=== PATIENT | female | born 1970 | race Caucasian/White ===

== ENCOUNTER 2016-09-25 01:01 | Observation (INO) ==
[2016-09-25 01:41] LABS: Basophils # 0.1 K/mcL (0.0-0.2); Basophils % 0.7 %; Eosinophils # 0.2 K/mcL (0.0-0.6); Eosinophils % 2.7 %; Hematocrit 46.3 % (35.3-44.9); Immature Granulocytes % 0.2 % (0-4); Immature Platelets 3.3 % (1.1-6.1); Lymphocytes % 34.2 %; Mean Corpuscular HGB Conc 34.6 g/dL (31.6-35.5); Mean Corpuscular Hemoglobin 32.5 pg (28.0-33.3); Mean Corpuscular Volume 94.1 fL (83.0-100.0); Mean Platelet Volume 9.6 fL (9.4-12.4); Monocytes # 0.7 K/mcL (0.0-1.3); Monocytes % 7.3 %; Neutrophils # 4.9 K/mcL (1.6-8.9); Platelet Count 283 K/mcL (140-400); Red Blood Count 4.92 M/mcL (3.82-4.97); Red Cell Distribution Width 12.2 % (11.5-14.5); Segmented Neutrophils % 54.9 %
[2016-09-25] MEDS ORDERED: Aspirin 81 MG TAB.CHEW PO STA (01:46)
[2016-09-25 01:53] LABS: BUN/Creatinine Ratio 17 (6-26); Blood Urea Nitrogen 14 mg/dL (7-20); Calcium 9.5 mg/dL (8.6-10.8); Carbon Dioxide 24 mEq/L (19-29); Chloride 108 mEq/L (98-109); Glucose 119 mg/dL (70-99); Osmolality,Calculated 290 (280-300); Potassium 3.6 mEq/L (3.5-4.5); Sodium 139 mEq/L (136-145); eGFR For African Americans > 60 (> 60); eGFR For Non-African Americans > 60 (> 60)
[2016-09-25] MEDS ORDERED: *HR* Morphine 2 MG/ML SYRINGE IVP ONE (02:04)
[2016-09-25] MEDS ORDERED: Ondansetron 4 MG/2 ML VIAL IVP ONE (02:04)
[2016-09-25] MEDS ORDERED: 0.9 % Sodium Chloride 1,000 ML IVC ONE (02:04)
[2016-09-25] MEDS ORDERED: Nitroglycerin 0.4 MG TAB.SUBL SL PRN (02:04)
--- NOTE | 2016-09-25 02:27 | Emergency Department Note ---
Disposition Clinical Impression: Chest pain Qualifiers: Chest pain type: precordial pain Qualified Code(s): R07.2 - Precordial pain Disposition: Admitted As Inpatient Condition: Fair Chest Pain HPI - General Chief Complaint: ED Chest Pain Stated Complaint: chest pain Time Seen by Provider: 09/25/16 01:42 Source: patient Mode of arrival: private vehicle Limitations: no limitations Vital Signs Reviewed: Yes Nursing Notes Reviewed: Yes - History of Present Illness Pt complaint: chest pain Onset (ago): day(s) (1 - yesterday evening) Duration: gradually worsening Onset: during exertion Pain Location: substernal Severity: moderate Quality: heaviness, sharp Pain Radiation: back Improves with: rest Worsens with: exertion, other (lying down) Associated symptoms: Reports: nausea, dyspnea ("feel a little short of breath because it hurts so bad"). Denies: vomiting, diaphoresis Treatments prior to arrival chest pain: none - Related Data On Oral Contraceptives: No Previous Rx's Medication Instructions Recorded Acetaminophen [Tylenol] 500 mg PO Q6HR PRN #20 tablet 11/17/14 Meclizine [Antivert] 25 mg PO TID #20 tablet 01/21/15 Ondansetron HCl [Zofran] 4 mg PO 2-3XD PRN #14 tablet 01/21/15 Allergies Allergy/AdvReac Type Severity Reaction Status Date / Time codeine Allergy Rash Verified 11/17/14 17:27 Amoxicillin AdvReac Rash Verified 01/21/15 10:07 All systems ED: reviewed and negative except as stated. Constitutional: Denies: fever, chills, weakness Cardiovascular: Reports: chest pain. Denies: palpitations, dyspnea on exertion , orthopnea, edema, syncope Respiratory: Reports: dyspnea. Denies: cough, wheezes Gastrointestinal: Reports: nausea. 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 Absent: scleral icterus, conjunctival injection, periorbital swelling - ENT ENT exam: mucous membranes moist - Neck Neck exam: Present: normal inspection, full ROM, trachea midline. Absent: tenderness, meningismus - Chest Chest inspection: Present: normal inspection, symmetric chest wall rise - Respiratory Respiratory exam: Present: normal lung sounds bilaterally. Absent: respiratory distress, wheezes, stridor - Cardiovascular Cardiovascular exam: Present: regular rate, normal rhythm, normal heart sounds - Abdominal Exam Abdominal exam: Present: soft, Non-Tender. Absent: distention, guarding, rebound, rigidity, organomegaly, mass - Extremities Exam Extremities exam: Present: normal inspection, normal capillary refill. Absent: pedal edema - Back Exam Back exam: Present: normal inspection, full ROM. Absent: tenderness - Neurological Exam Neurological exam: Present: alert, oriented X3, CN II-XII intact, normal gait - Psychiatric Psychiatric exam: Present: normal affect, normal mood - Skin Skin exam: Present: warm, dry, intact, normal color Course Course Narrative: 46-year-old obese female smoker presents with exertional chest pain of 24 hours duration. It has increased in intensity throughout the night. She was unable to sleep. The pain is worse with any exertion and with lying supine. It radiates through to the back. She had a stress test a year ago and has never had a heart catheterization. She denies recent illness, recent calf pain, surgery, or prolonged sedentary periods. She is not on estrogen and has no history of DVT or PE. She has had nausea but no vomiting and has no abdominal tenderness to palpation. Her initial oxygen saturation was 92% on room air. She does have a history of asthma/COPD. She has no wheezing and is not tachypneic or tachycardic. Her oxygen saturation improves when she sits up straight. She has had no cough and her chest x-ray does not show pneumonia. Her EKG shows Q waves in lead three which is new compared to 2015. Initial troponin is normal. She will require admission for rule out. Case has been discussed with attending physician, Dr. Tonie Bruce. She has seen the patient and agrees with the assessment, plan. - Reevaluation(s) Reevaluation #1: Pain better after NTG and Morphine. O2sat improved with posture correction Time: 03:37 Vital Signs Temperature 98.2 F 09/25/16 01:13 Pulse Rate 83 09/25/16 01:13 Respiratory Rate 18 09/25/16 01:13 Blood Pressure 112/75 09/25/16 01:13 O2 Sat by Pulse Oximetry 92 09/25/16 01:13 Temperature 98.2 F 09/25/16 01:13 Pulse Rate 75 09/25/16 03:50 Respiratory Rate 18 09/25/16 03:50 Blood Pressure 112/75 09/25/16 01:13 O2 Sat by Pulse Oximetry 95 09/25/16 03:50 Oxygen Delivery Oxygen Delivery Room Air Chest Pain - Medical Records Medical records reviewed: Yes I reviewed the patient's medical records. - Lab Data Lab results reviewed: Yes I reviewed the patient's lab results. Lab results narrative: Laboratory Last Values WBC 8.9 K/mcL (4.3-11.1) 09/25/16 01:33 RBC 4.92 M/mcL (3.82-4.97) 09/25/16 01:33 Hgb 16.0 g/dL (11.5-15.4) H 09/25/16 01:33 Hct 46.3 % (35.3-44.9) H 09/25/16 01:33 MCV 94.1 fL (83.0-100.0) 09/25/16 01:33 MCH 32.5 pg (28.0-33.3) 09/25/16 01:33 MCHC 34.6 g/dL (31.6-35.5) 09/25/16 01:33 RDW 12.2 % (11.5-14.5) 09/25/16 01:33 Plt Count 283 K/mcL (140-400) 09/25/16 01:33 MPV 9.6 fL (9.4-12.4) 09/25/16 01:33 Immature Gran % 0.2 % (0-4) 09/25/16 01:33 Seg Neutrophils % 54.9 % 09/25/16 01:33 Lymphocytes % 34.2 % 09/25/16 01:33 Monocytes % 7.3 % 09/25/16 01:33 Eosinophils % 2.7 % 09/25/16 01:33 Basophils % 0.7 % 09/25/16 01:33 Neutrophils # 4.9 K/mcL (1.6-8.9) 09/25/16 01:33 Lymphocytes # 3.0 K/mcL (0.6-4.6) 09/25/16 01:33 Monocytes # 0.7 K/mcL (0.0-1.3) 09/25/16 01:33 Eosinophils # 0.2 K/mcL (0.0-0.6) 09/25/16 01:33 Basophils # 0.1 K/mcL (0.0-0.2) 09/25/16 01:33 Immature Plt Fraction 3.3 % (1.1-6.1) 09/25/16 01:33 D-Dimer 412 ng/mLFEU (0-500) 09/25/16 02:53 Sodium 139 mEq/L (136-145) 09/25/16 01:33 Potassium 3.6 mEq/L (3.5-4.5) 09/25/16 01:33 Chloride 108 mEq/L (98-109) 09/25/16 01:33 Carbon Dioxide 24 mEq/L (19-29) 09/25/16 01:33 BUN 14 mg/dL (7-20) 09/25/16 01:33 Creatinine 0.83 mg/dL (0.57-1.11) 09/25/16 01:33 Est GFR ( Amer) > 60 (> 60) 09/25/16 01:33 Est GFR (Non-Af Amer) > 60 (> 60) 09/25/16 01:33 BUN/Creatinine Ratio 17 (6-26) 09/25/16 01:33 Glucose 119 mg/dL (70-99) H 09/25/16 01:33 Calculated Osmolality 290 (280-300) 09/25/16 01:33 Calcium 9.5 mg/dL (8.6-10.8) 09/25/16 01:33 Troponin I 0.01 ng/mL (0-0.03) 09/25/16 01:33 Lipase 31 Units/L (8-78) 09/25/16 02:53 Result diagrams: 09/25/16 01:33 07/11/17 01:33 Lab Results 09/25/16 09/25/16 09/25/16 Range/Units 01:33 01:33 01:33 WBC 8.9 (4.3-11.1) K/mcL RBC 4.92 (3.82-4.97) M/mcL Hgb 16.0 H (11.5-15.4) g/dL Hct 46.3 H (35.3-44.9) % MCV 94.1 (83.0-100.0) fL MCH 32.5 (28.0-33.3) pg MCHC 34.6 (31.6-35.5) g/dL RDW 12.2 (11.5-14.5) % Plt Count 283 (140-400) K/mcL MPV 9.6 (9.4-12.4) fL Immature Gran % 0.2 (0-4) % Seg Neutrophils % 54.9 % Lymphocytes % 34.2 % Monocytes % 7.3 % Eosinophils % 2.7 % Basophils % 0.7 % Neutrophils # 4.9 (1.6-8.9) K/mcL Lymphocytes # 3.0 (0.6-4.6) K/mcL Monocytes # 0.7 (0.0-1.3) K/mcL Eosinophils # 0.2 (0.0-0.6) K/mcL Basophils # 0.1 (0.0-0.2) K/mcL Immature Plt Fraction 3.3 (1.1-6.1) % D-Dimer (0-500) ng/mLFEU Sodium 139 (136-145) mEq/L Potassium 3.6 (3.5-4.5) mEq/L Chloride 108 (98-109) mEq/L Carbon Dioxide 24 (19-29) mEq/L BUN 14 (7-20) mg/dL Creatinine 0.83 (0.57-1.11) mg/dL Est GFR ( Amer) > 60 (> 60) Est GFR (Non-Af Amer) > 60 (> 60) BUN/Creatinine Ratio 17 (6-26) Glucose 119 H (70-99) mg/dL Calculated Osmolality 290 (280-300) Calcium 9.5 (8.6-10.8) mg/dL Troponin I 0.01 (0-0.03) ng/mL Lipase (8-78) Units/L 09/25/16 09/25/16 Range/Units 02:53 02:53 WBC (4.3-11.1) K/mcL RBC (3.82-4.97) M/mcL Hgb (11.5-15.4) g/dL Hct (35.3-44.9) % MCV (83.0-100.0) fL MCH (28.0-33.3) pg MCHC (31.6-35.5) g/dL RDW (11.5-14.5) % Plt Count (140-400) K/mcL MPV (9.4-12.4) fL Immature Gran % (0-4) % Seg Neutrophils % % Lymphocytes % % Monocytes % % Eosinophils % % Basophils % % Neutrophils # (1.6-8.9) K/mcL Lymphocytes # (0.6-4.6) K/mcL Monocytes # (0.0-1.3) K/mcL Eosinophils # (0.0-0.6) K/mcL Basophils # (0.0-0.2) K/mcL Immature Plt Fraction (1.1-6.1) % D-Dimer 412 (0-500) ng/mLFEU Sodium (136-145) mEq/L Potassium (3.5-4.5) mEq/L Chloride (98-109) mEq/L Carbon Dioxide (19-29) mEq/L BUN (7-20) mg/dL Creatinine (0.57-1.11) mg/dL Est GFR ( Amer) (> 60) Est GFR (Non-Af Amer) (> 60) BUN/Creatinine Ratio (6-26) Glucose (70-99) mg/dL Calculated Osmolality (280-300) Calcium (8.6-10.8) mg/dL Troponin I (0-0.03) ng/mL Lipase 31 (8-78) Units/L - Radiology Data Radiology results reviewed: Yes I reviewed the patient's radiology results. Chest X-Ray 09/25/16 01:22 IMPRESSION: COPD with increasing left lung base atelectasis versus scarring. D/ / Fabián Gloria MD / Fabián Gloria MD Interpreting Provider: Fabián Gloria MD - EKG Data EKG attestation: Yes I reviewed and interpreted this EKG. EKG shows normal: sinus rhythm Rate: normal Rhythm: NSR [place]/QRS: normal Q waves: III When compared to previous EKG there are: changes noted Interpretation: nonspecific ST-T wave changes - Core Measures AMI Core Measures Followed: Yes Heart Score - Score History: Slightly Suspicious EKG: Non Specific repolarisation Disturbance Age: 45-65 Risk Factors: 1-2 risk factors Troponin: Less than normal limit HEART Score Total: 3 Attestation Statement - Attestation Attestation: I personally interviewed and examined this patient and my medical decision- making was reviewed with the MANDEEP, Kym Stern I agree with the documented findings , disposition and treatment plan as described except to the extent set forth below. This 46-year-old white female history of smoking who presents to the emergency department with substernal chest discomfort and shortness of breath. Patient with cardiac risk factors and prior remote stress testing which was normal. Patient does not feel the pain is related to exertion. No aggravating or relieving factors. Agree with patient's physical exam findings as documented. EKG showed no acute ST or T-wave changes. Patient's chest x-ray was within normal limits. Labs including initial troponin and d-dimer were within normal limits. Symptoms were resolved following aspirin and nitroglycerin administration. We will admit the patient for further evaluation of chest pain rule out ACS. Patient's remained hemodynamically stable while in the emergency department.
[2016-09-25] MEDS ORDERED: Naloxone 0.4 MG/ML INJ IVP PRN (10:05)
[2016-09-25] MEDS ORDERED: Ibuprofen 400 MG TABLET PO PRN (10:05)
[2016-09-25 11:26] VITALS: BP 104/63
--- NOTE | 2016-09-25 11:51 | Internal Med History&Physical ---
Date of Encounter: 09/25/16 Time of Encounter: 10:00 Assessment and Plan (1) Chest pain Current visit: Yes Status: Acute Atypical chest pain, could be noncardiac/musculoskeletal or pericarditis. EKG shows no acute ischemic changes. Telemetry monitoring has been uneventful. Serial troponins remain negative. Patient is currently asymptomatic, tolerates oral diet. When necessary NSAIDs and aspirin. Nuclear stress test done during spring 2015 was negative for ischemia/infarct. She follows with cardiology for PVCs and has been started on beta radha and doing well. She does have cardiology follow-up tomorrow, recommend to keep this appointment. Patient is otherwise medically stable, and will be discharged later today. Qualifiers: Chest pain type: precordial pain Qualified Code(s): R07.2 - Precordial pain (2) Tobacco abuse Current visit: Yes Status: Chronic smoking cessation counseling provided. Patient is currently on cessation program and cut down to half pack per day. (3) Asthma Current visit: Yes Status: Chronic Qualifiers: Asthma severity: mild intermittent Asthma complication type: uncomplicated Qualified Code(s): J45.20 - Mild intermittent asthma, uncomplicated Internal Medicine - H&P: HPI Chief complaint: Chest pain Admitted From: Emergency Dept Plans for Post Hospital Care: Home History of present illness: Ms. Vaughan is a 46 year old female with history of tobacco abuse, PVCs, presents with complaints of retrosternal chest pain for the past day. Patient reports sudden onset of retrosternal stabbing chest pain that began more than 24 hours ago in the early hours of September 24. Pain was constant, aggravated in supine position, improved on sitting up, not associated with upper respiratory symptoms/fever/chills/diaphoresis or shortness of breath. She associated the pain to indigestion/GERD and took Zantac and PPI throughout the day, which failed to relieve her pain. She continued to have similar pain on lying down last night, could not sleep for the last 2 nights, and presented to the emergency room for further evaluation. She was seen by cardiology for preop clearance for hysterectomy due to PVCs and has been started on low-dose aspirin and beta radha, she does have a routine follow-up with cardiology tomorrow. Past Med Surg Social Fam HX - Past Medical History Medical history: asthma Psychiatric history: anxiety - Past Surgical History Surgical History: breast surgery (Left breast biopsy), cholecystectomy, herniorrhaphy, hysterectomy, orthopedic, other - Social History Smoking Status: Current every day smoker Packs per day: 1 Smokeless Tobacco Status: No Alcohol use: occasionally Drug use: none Occupational status: employed Current living situation: Home, With Family Activity Level: Independent ambulation Recent Out of Country Travel Within the Last 8 Weeks: No - Family History Mother Hx Family Endocrine Disorder: Yes (DM) Internal Medicine - H&P: Meds Acetaminophen [Tylenol] 500 mg PO Q6HR PRN #20 tablet 11/17/14 [Rx] Albuterol Sulfate [Albuterol Inhaler] 2 puff IH Q4HR PRN 09/25/16 [History] Flunisolide [Aerospan] 1 puff IH BID 09/25/16 [History] Metoprolol XL (24 HR) Succ [Toprol XL] 12.5 mg PO DAILY 09/25/16 [History] Montelukast [Singulair] 10 mg PO QPM 09/25/16 [History] Allergies codeine Allergy (Verified 11/17/14 17:27) Rash Amoxicillin Adverse Reaction (Verified 01/21/15 10:07) Rash All Systems PM: A 10-system review of systems was performed and is negative for pertinent findings except as documented above in the HPI. - Constitutional Constitutional: no chills, no fever(s), no night sweats - EENT Eyes: no change in vision, no discharge, no pain, no photophobia Ears: no ear discharge, no ear pain, no tinnitus Nose, mouth and throat: no dysphagia, no nasal discharge, no neck pain, no sore throat - Cardiovascular Cardiovascular ROS IM: chest pain - Respiratory Respiratory: dyspnea, no cough, no wheezing, no excessive phlegm production - Gastrointestinal Gastrointestinal: no abdominal pain, no diarrhea, no hematemesis, no hematochezia, no melena, no nausea, no vomiting - Genitourinary Genitourinary: no change in urinary stream, no dysuria, no flank pain, no hematuria - Musculoskeletal Musculoskeletal ROS IM: no numbness, no tingling - Integumentary Integumentary IM: no rash, no unusual bruising - Neurological Neurological ROS: no confusion, no convulsions, no focal weakness, no numbness, no tingling, no tremor(s) - Hematologic/Lymphatic Hematologic/Lymphatic: no easy bruising - Constitutional Vitals: Temp Pulse Resp BP Pulse Ox 98.0 F 82 16 104/63 92 09/25/16 11:23 09/25/16 11:23 09/25/16 11:23 09/25/16 11:23 09/25/16 11:23 General appearance: Present: A&O X 3, answers questions appropriately - Respiratory Respiratory exam: Present: CTAB. Absent: accessory muscle use, rales, rhonchi, wheezes - Cardiovascular Cardiovascular exam: Present: RRR, +S1, +S2. Absent: diastolic murmur, gallop, rubs, systolic murmur - GI/Abdominal GI/Abdominal exam: Present: normal bowel sounds, soft, no peritoneal signs. Absent: distended, tenderness - Extremities Exam Extremities exam: Present: full ROM, warm, radial pulses palpable and symetrical. Absent: calf tenderness, cyanotic, pedal edema - Neurological Exam Neurological exam: Present: CN II-XII intact, oriented X3, no focal deficits. Absent: pronater drift, facial droop, speech deficit - Skin Skin exam: Present: dry, intact Internal Med - H&P Results - Labs CBC & Chem 7: 09/25/16 01:33 09/25/16 01:33 Labs: Cardiac Enzymes 09/25/16 Range/Units 09:17 Troponin I 0.01 (0-0.03) ng/mL - EKG Data -: EKG Interpreted by Myself EKG shows normal: sinus rhythm Rate: normal
--- NOTE | 2016-09-25 12:27 | Discharge Summary ---
<Areli Rodríguez - Last Filed: 09/25/16 18:18> Date of Encounter: 09/25/16 - Discharge Medications Home Medications: Acetaminophen [Tylenol] 500 mg PO Q6HR PRN #20 tablet 11/17/14 [Rx] Albuterol Sulfate [Albuterol Inhaler] 2 puff IH Q4HR PRN 09/25/16 [History] Flunisolide [Aerospan] 1 puff IH BID 09/25/16 [History] Ibuprofen [Motrin] 400 mg PO Q6HR PRN #0 tablet 09/25/16 [Rx] Metoprolol XL (24 HR) Succ [Toprol Xl] 12.5 mg PO DAILY 09/25/16 [History] Montelukast [Singulair] 10 mg PO QPM 09/25/16 [History] Allergies/Adverse Reactions: Allergies codeine Allergy (Verified 11/17/14 17:27) Rash Amoxicillin Adverse Reaction (Verified 01/21/15 10:07) Rash Date of admission: 09/25/16 04:03 Primary care physician: Solomon Badillo MD - Patient Status Disposition: Home, Self-Care Condition: Good - Discharge Instructions Instructions: Chest Pain (DC), Asthma (DC), How to Stop Smoking (DC) Follow Up With: Solomon Badillo MD [Primary Care Provider] - 10/02/16 10:45 am Goyo Womack MD [Partnered Physician] - 09/26/16 8:50 am Additional Instructions: F/up with [facility] as scheduled on 09/26/16 Hospital course: Ms. Vaughan is a 46 year old female - Time Spent with Patient Total time spent providing and/or coordinating discharge services: - Constitutional Vitals: Temp Pulse Resp BP Pulse Ox 98.0 F 82 16 104/63 92 09/25/16 11:23 09/25/16 11:23 09/25/16 11:23 09/25/16 11:23 09/25/16 11:23 <Mouna Morales - Last Filed: 09/26/16 09:35> Date of Encounter: 09/26/16 Time of Encounter: 10:00 - Discharge Diagnosis (1) Chest pain Priority: Primary Status: Acute Qualifiers: Chest pain type: precordial pain Qualified Code(s): R07.2 - Precordial pain (2) Tobacco abuse Priority: Secondary Status: Chronic (3) Asthma Priority: Secondary Status: Chronic Qualifiers: Asthma severity: mild intermittent Asthma complication type: uncomplicated Qualified Code(s): J45.20 - Mild intermittent asthma, uncomplicated Date of admission: 09/25/16 04:03 Primary care physician: Solomon Badillo MD Discharging clinician: Mouna Morales Anticipated date of discharge: 09/25/16 - Patient Status Functional capacity at discharge: independent ambulation Overall status at discharge: patient is back to baseline - Diet and Activity Activity: resume usual activities as tolerated Diet: advance to your usual diet Hospital course: Ms. Vaughan is a 46 year old female with the above medical problems, who was admitted with left-sided chest pain, to r/o ACS. Patient had atypical pain, that was worse on lying down, could be musculoskeletal/GERD/mild pericarditis. She was much improved upon my evaluation this morning and tolerates diet and doing well. Labs were normal, remained hemodynamically stable. Telemetry was uneventful and serial Troponins were negative. She has Cardiology f/up for PVCs monitoring tomorrow, and is medically stable for discharge, and encouraged to keep tomorrow's appointment. - Time Spent with Patient Total time spent providing and/or coordinating discharge services: Greater than 30 minutes (30 min) - Constitutional Vitals: Temp Pulse Resp BP Pulse Ox 98.0 F 82 16 104/63 92 09/25/16 11:23 09/25/16 11:23 09/25/16 11:23 09/25/16 11:23 09/25/16 11:23 General appearance: Present: A&O X 3, answers questions appropriately - Respiratory Respiratory exam: Present: CTAB. Absent: accessory muscle use, rales, rhonchi, wheezes
--- NOTE | 2016-09-25 16:37 | Electrocardiograph Report ---
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
== END 2016-09-25 15:13 | disposition home or self-care (01) ==
LOC: EMEROO 01:01 → 3BNU 01:01
PROVIDERS: ADMIT Internal Medicine; ATTEND Registered Nurse

== ENCOUNTER 2018-04-03 02:49 | Observation (INO) ==
[2018-04-03] MEDS ORDERED: Ipratropium/Albuterol Neb 3 ML IH ONE (03:01)
[2018-04-03] MEDS ORDERED: methylPREDNISolone 125 MG/2 ML VIAL IVP ONE (03:01)
[2018-04-03 03:13] LABS: Basophils % 0.2 %; Hematocrit 48.5 % (35.3-44.9); Hemoglobin 16.7 g/dL (11.5-15.4); Immature Granulocytes % 0.4 % (0-4); Lymphocytes # 1.1 K/mcL (0.6-4.6); Lymphocytes % 7.4 %; Mean Corpuscular HGB Conc 34.4 g/dL (31.6-35.5); Mean Corpuscular Hemoglobin 32.6 pg (28.0-33.3); Mean Corpuscular Volume 94.7 fL (83.0-100.0); Mean Platelet Volume 9.7 fL (9.4-12.4); Monocytes # 0.2 K/mcL (0.0-1.3); Monocytes % 1.5 %; Neutrophils # 13.1 K/mcL (1.6-8.9); Platelet Count 299 K/mcL (140-400); Red Blood Count 5.12 M/mcL (3.82-4.97); Red Cell Distribution Width 12.2 % (11.5-14.5); Segmented Neutrophils % 90.5 %
--- NOTE | 2018-04-03 03:29 | Emergency Department Note ---
Disposition Clinical Impression: Hypoxia, Pneumonitis, Lung nodule Disposition: Admitted As Inpatient Condition: Good Time of Disposition: 05:11 SOB HPI - General Chief Complaint: ED Shortness of Breath/Dyspnea Stated Complaint: Naida Time Seen by Provider: 04/03/18 02:52 Source: patient Limitations: no limitations Nursing Notes Reviewed: Yes Vital Signs Reviewed: Yes - History of Present Illness 47-year-old female history of asthma and tobacco smoker presents to the emergency department for difficulty in breathing. States over the past 2 weeks or so she sat productive cough with difficulty in breathing with chest tightness today. She has not been evaluated for this in thought she may have had pneumonia. She was seen at outside facility where they diagnosed her with bronchitis sent home on Zpak with breathing treatments. She returned home and continue to have difficulty in breathing and presents here. Never diagnosed with COPD. She states early into her illness she did have fevers for 3 days but has been afebrile. She denies any leg swelling. She denies any recent long- distance travel, hospitalization or surgeries. No history of active cancer or hormone replacement. No history of cardiac ischemic disease. Pt Subjective Complaint: shortness of breath, cough - Related Data Home Medications Medication Instructions Recorded Confirmed Albuterol Sulfate [Albuterol 2 puff IH Q4HR PRN 09/25/16 09/25/16 Inhaler] Flunisolide [Aerospan] 1 puff IH BID 09/25/16 09/25/16 Metoprolol XL (24 HR) Succ [Toprol 12.5 mg PO DAILY 09/25/16 09/25/16 Xl] Montelukast [Singulair] 10 mg PO QPM 09/25/16 09/25/16 Previous Rx's Medication Instructions Recorded Acetaminophen [Tylenol] 500 mg PO Q6HR PRN #20 tablet 11/17/14 Ibuprofen [Motrin] 400 mg PO Q6HR PRN #0 tablet 09/25/16 Doxycycline 100 mg PO BID #14 capsule 10/13/16 predniSONE [Prednisone] 50 mg PO DAILY #5 tablet 10/13/16 Albuterol Sulfate [Albuterol 1 puff IH Q4HR PRN #1 hfa.aer.ad 12/25/16 Inhaler] Flunisolide [Aerospan] 1 puff IH BID #1 hfa.aer.ad 12/25/16 Montelukast [Singulair] 10 mg PO DAILY #30 tablet 12/25/16 Albuterol Sulfate [Albuterol 2 puff IH QID #1 inhaler 05/13/17 Inhaler] Azithromycin [Azithromycin 6-Tab 250 mg PO PER PKG DI #6 tab 05/13/17 Pack] Benzonatate [Tessalon] 200 mg PO TID PRN #20 capsule 05/13/17 predniSONE [PredniSONE] 20 mg PO BID #10 tablet 05/13/17 GuaiFENesin ER [Mucinex] 600 mg PO BID #30 tbbp.12hr 06/04/17 Levofloxacin [Levaquin] 750 mg PO DAILY #9 tablet 06/04/17 predniSONE [Prednisone] 50 mg PO DAILY #4 tablet 06/04/17 Allergies Allergy/AdvReac Type Severity Reaction Status Date / Time codeine Allergy Rash Verified 06/04/17 16:53 Penicillins Allergy Rash Verified 06/04/17 16:53 sulfamethoxazole Allergy Hives Verified 04/03/18 02:54 [From Bactrim] trimethoprim [From Bactrim] Allergy Hives Verified 04/03/18 02:54 Amoxicillin AdvReac Rash Verified 06/04/17 16:53 All systems ED: reviewed and negative except as stated. Review of Systems: As Per HPI Constitutional: Denies: fever, chills ENT ED: Reports: congestion Cardiovascular: Reports: chest pain Respiratory: Reports: cough, dyspnea. Denies: hemoptysis Gastrointestinal: Denies: abdominal pain, nausea, vomiting Genitourinary: Denies: urgency, dysuria Musculoskeletal: Denies: back pain Integumentary: Denies: rash, abrasion Neurological: Denies: headache Past Medical History - Past Medical History Attestation: Yes The following information was validated with the patient. 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 - Social History Smoking Status: Current every day smoker Smokeless Tobacco Status: No Alcohol use: Reports: occasionally Drug use: Reports: none Physical Exam - General Limitations: no limitations General appearance: alert - Head Head exam: atraumatic, normocephalic, normal inspection - Eye Eye exam: Present: normal appearance, PERRL, EOMI - ENT ENT exam: normal exam, normal oropharynx, mucous membranes moist - Neck Neck exam: Present: normal inspection, full ROM, trachea midline - Chest Chest inspection: Present: normal inspection, symmetric chest wall rise - Respiratory Respiratory exam: Present: normal lung sounds bilaterally, prolonged expiratory phase, other (Tight aeration). Absent: respiratory distress, wheezes - Cardiovascular Cardiovascular exam: Present: regular rate, normal rhythm, normal heart sounds - Abdominal Exam Abdominal exam: Present: soft, Non-Tender, normal bowel sounds. Absent: tenderness, distention, guarding, rebound, rigidity - Extremities Exam Extremities exam: Present: normal inspection, full ROM, normal capillary refill. Absent: tenderness, pedal edema, calf tenderness - Neurological Exam Neurological exam: Present: alert, oriented X3 - Psychiatric Psychiatric exam: Present: normal affect, normal mood - Skin Skin exam: Present: warm, dry, intact, normal color. Absent: rash, cyanosis, diaphoresis Course Course Narrative: Patient presents with complaints of difficulty breathing ongoing for the past 2 weeks worse today. She presents hypoxic requiring oxygen. She does not were oxygen at home. She has tight aeration but no audible wheezing. She is complaining of some chest tightness as well. No pleuritic chest pain. No leg swelling noted. Suspect likely reactive airway disease. Given the tachycardia and hypoxia will also order D dimer. Reading treatment ordered. - Reevaluation(s) Reevaluation #1: She has a leukocytosis of 14. Her D dimer is 300. Low suspicion for pulmonary embolism. Troponin less than 0.03. BNP is minimal. Improvement with breathing treatment. Chest x-ray is pending at this time. She reports a intramuscular steroid injection at urgent care and refused Solu-Medrol here. Time: 03:40 Reevaluation #2: Patient remains 91% on 1L, she is not on any home oxygen supplementation. Ambulated off oxygen and was 86%. Will admit for pneumonitis and hypoxia with Levaquin. She was made aware of an old right lung nodule Time: 05:11 - Consultations Consultation #1: Spoke with on-call hospitalist sophy Paredes to admit for hypoxia, pneumonitis. No further orders at this time Time: 06:23 Vital Signs Temperature 99.2 F 04/03/18 02:56 Pulse Rate 99 04/03/18 02:56 Respiratory Rate 20 04/03/18 02:56 Blood Pressure 145/78 04/03/18 02:56 O2 Sat by Pulse Oximetry 91 04/03/18 02:56 Temperature 99.2 F 04/03/18 02:56 Pulse Rate 123 04/03/18 06:37 Respiratory Rate 22 04/03/18 06:37 Blood Pressure 145/77 04/03/18 06:37 O2 Sat by Pulse Oximetry 96 04/03/18 06:37 Oxygen Delivery Oxygen Delivery Nasal Cannula Shortness of Breath/Dyspnea - MDM Narrative Medical decision making narrative: Patient was discussed with my attending physician who agrees with ED management and final disposition. They independently evaluated the patient. Please refer to their attestation to this encounter for additional information. This note was generated by [employer] voice recognition software and as a result grammatical or spelling errors may occur using this program. - Medical Records Medical records reviewed: Yes I reviewed the patient's medical records. - Lab Data Lab results reviewed: Yes I reviewed the patient's lab results. Result diagrams: 04/03/18 02:53 04/03/18 02:53 Lab Results 04/03/18 04/03/18 04/03/18 Range/Units 02:53 02:53 02:53 WBC 14.5 H (4.3-11.1) K/mcL RBC 5.12 H (3.82-4.97) M/mcL Hgb 16.7 H (11.5-15.4) g/dL Hct 48.5 H (35.3-44.9) % MCV 94.7 (83.0-100.0) fL MCH 32.6 (28.0-33.3) pg MCHC 34.4 (31.6-35.5) g/dL RDW 12.2 (11.5-14.5) % Plt Count 299 (140-400) K/mcL MPV 9.7 (9.4-12.4) fL Immature Gran % 0.4 (0-4) % Seg Neutrophils % 90.5 % Lymphocytes % 7.4 % Monocytes % 1.5 % Eosinophils % 0.0 % Basophils % 0.2 % Neutrophils # 13.1 H (1.6-8.9) K/mcL Lymphocytes # 1.1 (0.6-4.6) K/mcL Monocytes # 0.2 (0.0-1.3) K/mcL Eosinophils # 0.0 (0.0-0.6) K/mcL Basophils # 0.0 (0.0-0.2) K/mcL D-Dimer 382 (0-500) ng/mLFEU Sodium 137 (136-145) mEq/L Potassium 4.1 (3.5-5.1) mEq/L Chloride 107 (98-107) mEq/L Carbon Dioxide 19 L (23-29) mEq/L BUN 17 (6-20) mg/dL Creatinine 0.83 (0.60-1.20) mg/dL Est GFR ( Amer) > 60 (> 60) Est GFR (Non-Af Amer) > 60 (> 60) BUN/Creatinine Ratio 20 (6-26) Glucose 254 H (70-105) mg/dL Calculated Osmolality 294 (280-300) Calcium 9.4 (8.6-10.3) mg/dL Troponin I < 0.03 (< 0.04) ng/mL B-Natriuretic Peptide (Less than 100) pg/mL 04/03/18 Range/Units 02:53 WBC (4.3-11.1) K/mcL RBC (3.82-4.97) M/mcL Hgb (11.5-15.4) g/dL Hct (35.3-44.9) % MCV (83.0-100.0) fL MCH (28.0-33.3) pg MCHC (31.6-35.5) g/dL RDW (11.5-14.5) % Plt Count (140-400) K/mcL MPV (9.4-12.4) fL Immature Gran % (0-4) % Seg Neutrophils % % Lymphocytes % % Monocytes % % Eosinophils % % Basophils % % Neutrophils # (1.6-8.9) K/mcL Lymphocytes # (0.6-4.6) K/mcL Monocytes # (0.0-1.3) K/mcL Eosinophils # (0.0-0.6) K/mcL Basophils # (0.0-0.2) K/mcL D-Dimer (0-500) ng/mLFEU Sodium (136-145) mEq/L Potassium (3.5-5.1) mEq/L Chloride (98-107) mEq/L Carbon Dioxide (23-29) mEq/L BUN (6-20) mg/dL Creatinine (0.60-1.20) mg/dL Est GFR ( Amer) (> 60) Est GFR (Non-Af Amer) (> 60) BUN/Creatinine Ratio (6-26) Glucose (70-105) mg/dL Calculated Osmolality (280-300) Calcium (8.6-10.3) mg/dL Troponin I (< 0.04) ng/mL B-Natriuretic Peptide 26 (Less than 100) pg/mL - Radiology Data Radiology results reviewed: Yes I reviewed the patient's radiology results. Chest X-Ray 04/03/18 03:01 IMPRESSION: Extensive ground-glass opacification in the lower lung zones bilaterally. Pattern may represent pulmonary edema or developing pneumonitis. D/ / Quoc Morris MD / Quoc Morris MD Interpreting Provider: Quoc Morris MD - EKG Data EKG attestation: Yes I reviewed and interpreted this EKG. EKG results narrative: EKG performed 0257 sinus tachycardia 104 beats per minute, normal axis, good R wave progression, no ST elevation or depression, intervals appear within normal limits. Compared to prior EKG performed 06/04/2017 shows similar consistent findings. No acute ischemic changes. Attestation Statement - Attestation Attestation: I, Zi Azar DO, examined this patient [id number] and my medical decision-making was reviewed with Koko Adorno DO , Resident Physician. I agree with the documented findings, disposition and treatment plan as described except to the extent set forth below. Please see my progress notes for details.
[2018-04-03 03:32] LABS: BUN/Creatinine Ratio 20 (6-26); Blood Urea Nitrogen 17 mg/dL (6-20); Calcium 9.4 mg/dL (8.6-10.3); Carbon Dioxide 19 mEq/L (23-29); Chloride 107 mEq/L (98-107); Glucose 254 mg/dL (70-105); Osmolality,Calculated 294 (280-300); Potassium 4.1 mEq/L (3.5-5.1); Sodium 137 mEq/L (136-145); eGFR For Non-African Americans > 60 (> 60)
[2018-04-03 03:33] LABS: Troponin I < 0.03 ng/mL (< 0.04)
[2018-04-03] MEDS ORDERED: levoFLOXacin 750 MG TABLET PO ONE (05:05)
[2018-04-03] MEDS ORDERED: Albuterol 2.5 MG/3 ML NEBULIZER IH ONE (05:13)
--- NOTE | 2018-04-03 05:18 | Emergency Department Note ---
Disposition Clinical Impression: Hypoxia, Pneumonitis, Lung nodule Disposition: Admitted As Inpatient Condition: Good Referrals: Bartolo Miller DO [Primary Care Provider] - Time of Disposition: 06:41 General Adult HPI - General Chief complaint: ED Shortness of Breath/Dyspnea Stated complaint: Naida Time Seen by Provider: 04/03/18 02:52 Source: patient Limitations: no limitations - History of Present Illness Pain Scale: 0 - Related Data Allergies Allergy/AdvReac Type Severity Reaction Status Date / Time codeine Allergy Rash Verified 06/04/17 16:53 Penicillins Allergy Rash Verified 06/04/17 16:53 sulfamethoxazole Allergy Hives Verified 04/03/18 02:54 [From Bactrim] trimethoprim [From Bactrim] Allergy Hives Verified 04/03/18 02:54 Amoxicillin AdvReac Rash Verified 06/04/17 16:53 Constitutional: Denies: fever, chills ENT ED: Reports: congestion Cardiovascular: Reports: chest pain Respiratory: Reports: cough, dyspnea. 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 - Social History Smoking Status: Current every day smoker Smokeless Tobacco Status: No Alcohol use: Reports: occasionally Drug use: Reports: none Physical Exam - General Limitations: no limitations General appearance: alert Course Vital Signs Temperature 99.2 F 04/03/18 02:56 Pulse Rate 99 04/03/18 02:56 Respiratory Rate 20 04/03/18 02:56 Blood Pressure 145/78 04/03/18 02:56 O2 Sat by Pulse Oximetry 91 04/03/18 02:56 Temperature 99.2 F 04/03/18 02:56 Pulse Rate 123 04/03/18 06:37 Respiratory Rate 22 04/03/18 06:37 Blood Pressure 145/77 04/03/18 06:37 O2 Sat by Pulse Oximetry 96 04/03/18 06:37 Oxygen Delivery Oxygen Delivery Nasal Cannula Medical Decision Making - Lab Data Result diagrams: 04/03/18 02:53 04/03/18 02:53 Lab Results 04/03/18 04/03/18 04/03/18 Range/Units 02:53 02:53 02:53 WBC 14.5 H (4.3-11.1) K/mcL RBC 5.12 H (3.82-4.97) M/mcL Hgb 16.7 H (11.5-15.4) g/dL Hct 48.5 H (35.3-44.9) % MCV 94.7 (83.0-100.0) fL MCH 32.6 (28.0-33.3) pg MCHC 34.4 (31.6-35.5) g/dL RDW 12.2 (11.5-14.5) % Plt Count 299 (140-400) K/mcL MPV 9.7 (9.4-12.4) fL Immature Gran % 0.4 (0-4) % Seg Neutrophils % 90.5 % Lymphocytes % 7.4 % Monocytes % 1.5 % Eosinophils % 0.0 % Basophils % 0.2 % Neutrophils # 13.1 H (1.6-8.9) K/mcL Lymphocytes # 1.1 (0.6-4.6) K/mcL Monocytes # 0.2 (0.0-1.3) K/mcL Eosinophils # 0.0 (0.0-0.6) K/mcL Basophils # 0.0 (0.0-0.2) K/mcL D-Dimer 382 (0-500) ng/mLFEU Sodium 137 (136-145) mEq/L Potassium 4.1 (3.5-5.1) mEq/L Chloride 107 (98-107) mEq/L Carbon Dioxide 19 L (23-29) mEq/L BUN 17 (6-20) mg/dL Creatinine 0.83 (0.60-1.20) mg/dL Est GFR ( Amer) > 60 (> 60) Est GFR (Non-Af Amer) > 60 (> 60) BUN/Creatinine Ratio 20 (6-26) Glucose 254 H (70-105) mg/dL Calculated Osmolality 294 (280-300) Calcium 9.4 (8.6-10.3) mg/dL Troponin I < 0.03 (< 0.04) ng/mL B-Natriuretic Peptide (Less than 100) pg/mL 04/03/18 Range/Units 02:53 WBC (4.3-11.1) K/mcL RBC (3.82-4.97) M/mcL Hgb (11.5-15.4) g/dL Hct (35.3-44.9) % MCV (83.0-100.0) fL MCH (28.0-33.3) pg MCHC (31.6-35.5) g/dL RDW (11.5-14.5) % Plt Count (140-400) K/mcL MPV (9.4-12.4) fL Immature Gran % (0-4) % Seg Neutrophils % % Lymphocytes % % Monocytes % % Eosinophils % % Basophils % % Neutrophils # (1.6-8.9) K/mcL Lymphocytes # (0.6-4.6) K/mcL Monocytes # (0.0-1.3) K/mcL Eosinophils # (0.0-0.6) K/mcL Basophils # (0.0-0.2) K/mcL D-Dimer (0-500) ng/mLFEU Sodium (136-145) mEq/L Potassium (3.5-5.1) mEq/L Chloride (98-107) mEq/L Carbon Dioxide (23-29) mEq/L BUN (6-20) mg/dL Creatinine (0.60-1.20) mg/dL Est GFR ( Amer) (> 60) Est GFR (Non-Af Amer) (> 60) BUN/Creatinine Ratio (6-26) Glucose (70-105) mg/dL Calculated Osmolality (280-300) Calcium (8.6-10.3) mg/dL Troponin I (< 0.04) ng/mL B-Natriuretic Peptide 26 (Less than 100) pg/mL Attestation Statement - Attestation Attestation: I, Zi Azar DO, examined this patient [id number] and my medical decision-making was reviewed with Koko Adorno DO , Resident Physician. I agree with the documented findings, disposition and treatment plan as described except to the extent set forth below. Please see my progress notes for details. 42-year-old female seen and evaluated in conjunction with resident physician. Presents here today with increased work of breathing and shortness of breath. Patient has a history of asthma. She does smoke. She does have hypertension. Denies any falls trauma or injury. Denies any headache or vision change. Currently denying chest pain fevers chills nausea vomiting or diarrhea. Patient's main complaint shortness breath and chest tightness. Patient was seen in outside facility had chest x-ray completed that was negative at that time. She is provided with steroids recommendation to use breathing treatments at home. She thought that she is feeling slightly better but she said several episodes of exertional related lightheadedness dizziness and feeling like she was going to pass out. She does not use oxygen at home and has never used CPAP or BiPAP. On presentation here and on my evaluation the patient's heart rate is elevated in the 110 2015 range. She is still sitting forward working harder to breathe than typical. Her oxygenation is stable but requiring oxygen by nasal cannula. She has diminished breath sounds bilaterally. Heart is regular with no murmurs. Abdomen is soft. No signs of pitting edema or swelling. Patient was ambulated and attempt to get her home after the workup Unremarkable outside of potential pneumonitis versus atelectasis in the bilateral lungs. Patient ambulate around the emergency department had hypoxic events down into the 80s and felt lightheaded again at that time. Because of this the patient will be admitted for symptomatic control and management. Repeat doses of albuterol be given. Antibiotic regimen started for pneumonitis versus pneumonia. Levaquin was given. Blood cultures were drawn. Labs are reviewed and are unremarkable. Patient will be admitted for symptomatic asthma exacerbation versus new-onset COPD. Hospitalist has been paged at this time for admission process. See detailed documentation of the physical exam, medical intervention, medical decision-making and disposition in the resident physician's note. No critical care provider the patient's treatment course at this time. D-dimer was normal clinically ruling out pulmonary emboli at this time. Further evaluation for this etiology may be considered in the hospital stay 0645 Detailed review the presentation symptoms were discussed with the admitting hospitalist Dr. Rosales. No other recommendations or concerns noted this time. Patient is otherwise clinically stable. sHe will be admitted for continuation of care. We will monitor in emergency room until the admission process is completed.
[2018-04-03] MEDS ORDERED: 0.9 % Sodium Chloride 1,000 ML IVC ONE (05:46)
--- NOTE | 2018-04-03 08:41 | Internal Med History&Physical ---
<Danielito Alarcon - Last Filed: 04/03/18 14:30> Date of Encounter: 04/03/18 Time of Encounter: 08:35 Internal Medicine - H&P: HPI Chief complaint: short of breath Admitted From: Home Plans for Post Hospital Care: Home History of present illness: Ms. Vaughan is a 47 year old female past mental history acid reflux, tobacco abuse, asthma, multiple environmental allergies admitted to [facility] with shortness of breath. Patient states that one week ago she presented to the [facility] outpatient clinic for evaluation of an upper respiratory infection. She was provided a [facility] but never filled it states that she was feeling better until the last few days when she started having increased sputum production, worsening of cough, shortness of breath. She felt like her upper respirator symptoms moved into her chest yesterday and she became a little more short of breath. Yesterday afternoon she felt congested with mild chest tightening and presented [facility] for evaluation at which time they evaluated her and recommended transfer to [facility], she denied transfer by squad and decided to drive herself. She was seen emergency department required 2 L of nasal cane oxygen to improve her oxygen saturation she was given 3 DuoNeb treatments the also tachycardia. Overall she is feeling well currently. Tolerated steroids and antibiotic treatment thus far. She states that when she was in her 20s she had pneumonia in her left lower lobe lung neck caused it to collapse and since then she has had some scarring in that left lower lobe. She states she last had pneumonia back in May and was treated with antibiotics but refused admission. She had last seen a lung doctor many years ago was told she had asthma but no formal diagnosis of COPD. She does have a history of GERD but does not take any PPI or H2 radha. Past Med Surg Social Fam HX - Past Medical History Medical history: asthma, migraine, other Additional medical history: PVC's Psychiatric history: anxiety - Past Surgical History Surgical History: cholecystectomy Additional surgical history: hernia sx - Social History Smoking Status: Current every day smoker Smokeless Tobacco Status: No Alcohol use: occasionally Drug use: none - Family History Mother Hx Family Endocrine Disorder: Yes (DM) Internal Medicine - H&P: Meds Albuterol Sulfate [Ventolin Hfa] 1 - 2 puff IH Q4H PRN 04/03/18 [History] Fluticasone/Vilanterol [Breo Ellipta 100-25 Mcg INH] 1 puff IH DAILY 04/03/18 [History] Loratadine [Claritin] 10 mg PO DAILY 04/03/18 [History] Montelukast [Singulair] 10 mg PO QPM 04/03/18 [History] Allergy/AdvReac Type Severity Reaction Status Date / Time codeine Allergy "FULL BODY Verified 04/03/18 13:50 RASH" Penicillins Allergy Anaphylaxis, Verified 04/03/18 13:50 HIVES sulfamethoxazole Allergy Hives Verified 04/03/18 13:50 [From Bactrim] trimethoprim [From Bactrim] Allergy Hives Verified 04/03/18 13:50 Amoxicillin AdvReac "FULL BODY Verified 04/03/18 13:50 RASH" All Systems PM: A 10-system review of systems was performed and is negative for pertinent findings except as documented above in the HPI. Review of systems: Positive for chest congestion, shortness of breath, increased coughing, sputum production clear in color, tachypnea. Denies change in vision, blurry vision, lightheadedness, dizziness, syncopal episodes, chest pain, abdominal pains, nausea vomiting diarrhea constipation urinary burning urinary change in color, blood in her sputum or urine, swelling in any of her extremities. - Constitutional Vitals: Temp Pulse Resp BP Pulse Ox 99.2 F 122 18 125/74 92 04/03/18 02:56 04/03/18 08:06 04/03/18 08:06 04/03/18 08:06 04/03/18 08:06 Exam: General alert awake oriented interactive in no acute distress HEENT normocephalic, atraumatic, pupils equal reactive, oral mucosa moist, nasal cannula in place, neck supple trachea midline no stridor. Cardiac tachycardic, radial pulses 2+ bilateral Respiratory clear to auscultation bilateral, tachypnea Abdomen obese, soft, nontender to palpation, positive bowel sounds Extreme asymmetric bilateral patient moving all 4 extends without restriction, mild tremor in bilateral upper extremities, no fingernail findings of clubbing or splinter hemorrhaging. Internal Med - H&P Results - Labs CBC & Chem 7: 04/03/18 02:53 04/03/18 02:53 Labs: Short CBC 01/17/19 Range/Units 02:53 WBC 14.5 H (4.3-11.1) K/mcL Hgb 16.7 H (11.5-15.4) g/dL Hct 48.5 H (35.3-44.9) % Plt Count 299 (140-400) K/mcL Neutrophils # 13.1 H (1.6-8.9) K/mcL BMP 04/03/18 02:53 Sodium 137 Potassium 4.1 Chloride 107 Carbon Dioxide 19 L BUN 17 Creatinine 0.83 Glucose 254 H Calcium 9.4 Cardiac Enzymes 04/03/18 Range/Units 02:53 Troponin I < 0.03 (< 0.04) ng/mL - Impressions ITS Impressions Chest X-Ray 04/03/18 03:01 IMPRESSION: Extensive ground-glass opacification in the lower lung zones bilaterally. Pattern may represent pulmonary edema or developing pneumonitis. D/ / Quoc Morris MD / Quoc Morris MD Interpreting Provider: Quoc Morris MD - Assessment and plan (1) Acute respiratory failure Current Visit: Yes Status: Acute Assessment and plan: Patient presented with hypoxia, tachypnea and acute respiratory failure. Suspect COPD exacerbation may be mixed picture with patient's history of asthma. - Given a history, tachypnea, increased sputum production this appears to be more of a COPD exacerbation. - Patient received 125 mg IV Solu-Medrol in the emergency department - We will continue with 60 every 8 hours and wean Solu-Medrol as tolerated - Azithromycin 500 once, 250 IV daily this will help with anti-inflammatory and treatment of her COPD - Wean oxygen as tolerated. Qualifiers: Respiratory failure complication: hypoxia Qualified Code(s): J96.01 - Acute respiratory failure with hypoxia (2) Acid reflux Current Visit: Yes Status: Acute Assessment and plan: Patient has known history of acid reflux, may be associated with bilateral lung basilar pneumonitis. - Patient was supposed to be on H2 radha Qualifiers: Qualified Code(s): K21.9 - Gastro-esophageal reflux disease without esophagitis (3) Tobacco abuse Current Visit: No Status: Chronic Assessment and plan: PPD since age 14yo, continue to smoke - continue smoking cessation. (4) Asthma Current Visit: No Status: Chronic Assessment and plan: Continue home inhalers. Qualifiers: Asthma severity: unspecified severity Qualified Code(s): J45.909 - Unspecified asthma, uncomplicated (5) Pneumonitis Current Visit: Yes Status: Acute Assessment and plan: CXR compared to May 2016 demonstrates bibasilar scarring that is consistent on current x-ray. - There shows some mild more inflammation that may be secondary to acid reflux suspected to be pneumonitis. - We will discuss with pulmonology - We will obtain CT of the chest this patient is demonstrating worsening of restaurant status. (6) DVT prophylaxis Current Visit: Yes Status: Acute Assessment and plan: SCDs (7) Hyperglycemia Current Visit: Yes Status: Acute Assessment and plan: Glucose of 254 on initial labs - Patient not on any treatment for hyperglycemia - Before meals at bedtime glucose checks - Sliding scale insulin - Hemoglobin A1c - We will evaluate for type 2 diabetes. - Time Spent With Patient Total time spent is greater than 50% in coordination of care (as documented) at patient's floor/unit and/or counseling patient: <BriannaCole Michelle - Last Filed: 04/04/18 19:59> Date of Encounter: 04/04/18 Internal Medicine - H&P: HPI History of present illness: Ms. Vaughan is a 47 year old female Past Med Surg Social Fam HX - Family History Mother Living Status: Still Living Hx Family Cancer: Yes Hx Family Endocrine Disorder: Yes (DM) Father Living Status: Still Living Hx Family Cancer: Yes Hx Family Endocrine Disorder: Yes (DM) All Systems PM: A 10-system review of systems was performed and is negative for pertinent findings except as documented above in the HPI. - Constitutional Vitals: Temp Pulse Resp BP Pulse Ox 97.6 F 78 16 119/75 96 04/04/18 19:33 04/04/18 19:33 04/04/18 19:33 04/04/18 19:33 04/04/18 19:33 Internal Med - H&P Results - Labs CBC & Chem 7: 04/03/18 02:53 04/04/18 04:49 Labs: BMP 04/04/18 04:49 Sodium 136 Potassium 4.6 Chloride 107 Carbon Dioxide 22 L BUN 17 Creatinine 0.73 Glucose 179 H Calcium 9.2 - Impressions ITS Impressions Chest X-Ray 04/03/18 03:01 IMPRESSION: Extensive ground-glass opacification in the lower lung zones bilaterally. Pattern may represent pulmonary edema or developing pneumonitis. D/ / Quoc Morris MD / Quoc Morris MD Interpreting Provider: Quoc Morris MD - Assessment and plan (1) Tobacco abuse Current Visit: No Status: Chronic (2) Asthma Current Visit: No Status: Chronic Qualifiers: Asthma severity: unspecified severity Qualified Code(s): J45.909 - Unspecified asthma, uncomplicated (3) Pneumonitis Current Visit: Yes Status: Acute (4) Acute respiratory failure Current Visit: Yes Status: Acute Qualifiers: Respiratory failure complication: hypoxia Qualified Code(s): J96.01 - Acute respiratory failure with hypoxia (5) Acid reflux Current Visit: Yes Status: Acute Qualifiers: Qualified Code(s): K21.9 - Gastro-esophageal reflux disease without esophagitis (6) DVT prophylaxis Current Visit: Yes Status: Acute (7) Hyperglycemia Current Visit: Yes Status: Acute - Time Spent With Patient Total time spent is greater than 50% in coordination of care (as documented) at patient's floor/unit and/or counseling patient: - Attending Attestation Discussed with resident and agree with assessment and plan as above Suspect acute hypoxic respiratory failure secondary to COPD exacerbation
[2018-04-03] MEDS ORDERED: Naloxone 0.4 MG/ML INJ IVP PRN ×2 (08:52→08:53)
[2018-04-03] MEDS ORDERED: Acetaminophen 325 MG TABLET PO PRN ×2 (08:52→08:53)
[2018-04-03] MEDS ORDERED: Ipratropium/Albuterol Neb 3 ML IH PRN (08:56)
[2018-04-03] MEDS ORDERED: Azithromycin 500 MG in D5% in Water 250 ML IVPB ONE (08:56)
[2018-04-03] MEDS ORDERED: *HR* Dextrose 50 % in Water (Syg) 50 ML SYRINGE IVP PRN (09:13)
[2018-04-03] MEDS ORDERED: Dextrose Gel 15 GM/37.5 ML TUBE PO PRN ×2 (09:13)
[2018-04-03] MEDS ORDERED: D5% in Water 1,000 ML IVC PRN (09:13)
[2018-04-03 10:20] LABS: Estimated Average Glucose 114 mg/dl; Hemoglobin A1C 5.6 %
[2018-04-03] MEDS: traMADol 50 MG TABLET PO PRN ×2 (11:27→23:38)
[2018-04-03] MEDS: Insulin LISPRO 300 UNITS/3 ML VIAL SQ SCH ×3 (12:03→20:32)
--- NOTE | 2018-04-03 15:37 | Electrocardiograph Report ---
[place] [id number] Test Date: 2018-04-03 Pat Name: Shena Vaughan Department: [id number] Room: 3B55 Gender: F [employer]: : [id number] Requested By: Koko Adorno Order Number: [id number] Reading MD: Gerri Browne Measurements Intervals [place] Rate: 104 P: 81 IL: 153 QRS: 54 QRSD: 88 T: 76 QT: 334 QTc: 440 Interpretive Statements Sinus tachycardia Low voltage, precordial leads Electronically Signed On 04-03-2018 15:35:51 EST by Gerri Browne
[2018-04-03] MEDS: methylPREDNISolone 125 MG/2 ML VIAL IVP SCH ×2 (17:24→23:37)
[2018-04-04 05:37] LABS: BUN/Creatinine Ratio 23 (6-26); Blood Urea Nitrogen 17 mg/dL (6-20); Calcium 9.2 mg/dL (8.6-10.3); Carbon Dioxide 22 mEq/L (23-29); Chloride 107 mEq/L (98-107); Glucose 179 mg/dL (70-105); Osmolality,Calculated 288 (280-300); Potassium 4.6 mEq/L (3.5-5.1); Sodium 136 mEq/L (136-145); eGFR For Non-African Americans > 60 (> 60)
[2018-04-04] MEDS: Insulin LISPRO 300 UNITS/3 ML VIAL SQ SCH ×4 (07:41→21:11)
[2018-04-04] MEDS: Azithromycin 250 MG in D5% in Water 250 ML IVPB SCH (08:04)
[2018-04-04] MEDS: methylPREDNISolone 125 MG/2 ML VIAL IVP SCH ×3 (08:04→23:24)
[2018-04-04] MEDS: Loratadine 10 MG TABLET PO SCH (08:05)
--- NOTE | 2018-04-04 12:51 | Internal Med Progress Note ---
<Cullen Birmingham - Last Filed: 04/04/18 12:48> Date of Encounter: 04/04/18 Time of Encounter: 09:30 - Assessment and plan (1) Acute respiratory failure Current Visit: Yes Status: Acute Assessment and plan: Etiology likely mixed COPD exacerbation and patient's history of asthma. Pulse rate is currently controlled. Received 125 mg of IV Solu-Medrol in the ER. O2 saturation of 95% on room air. - Taper Solu-Medrol down from 60 mg every 8 hours down to 40 mg every 8 hours. - Continue azithromycin and day #2. - Nasopharyngeal viral panel, strep pneumonia, and sputum culture pending. Qualifiers: Respiratory failure complication: hypoxia Qualified Code(s): J96.01 - Acute respiratory failure with hypoxia (2) Acid reflux Current Visit: Yes Status: Acute Assessment and plan: Patient has no history of acid reflux. Might also be contributory towards her bilateral lung basilar pneumonitis. - Continue omeprazole. - Head of bed elevation. Qualifiers: Qualified Code(s): K21.9 - Gastro-esophageal reflux disease without esophagit is (3) Pneumonitis Current Visit: Yes Status: Acute Assessment and plan: Chest x-ray compared to May 2016 demonstrates bibasilar scarring that is consistent on current x-ray. Shows some mild more inflammation that may be secondary to acid reflux suspected to pneumonitis. (4) Asthma Current Visit: No Status: Chronic Assessment and plan: Continue home inhalers. Qualifiers: Asthma severity: unspecified severity Qualified Code(s): J45.909 - Unspec ified asthma, uncomplicated (5) Tobacco abuse Current Visit: No Status: Chronic Assessment and plan: Counseled on importance of smoking cessation. (6) Hyperglycemia Current Visit: Yes Status: Acute Assessment and plan: Glucose dropped from 254 down to 179. A1c of 5.6. - Continue insulin sliding scale. (7) DVT prophylaxis Current Visit: Yes Status: Acute Assessment and plan: Heparin 5000 units subcutaneously twice a day. - Subjective Interval history: Patient admits to mild SOB that is not at her baseline. Her SOB becomes worse with exertion. She denies any chest pain, nausea, vomiting, fever, or abdominal pain. She does admit to some chest congestion with clear productive cough. - Constitutional Vitals: Temp Pulse Resp BP Pulse Ox 98.6 F 78 16 106/67 94 04/04/18 11:06 04/04/18 11:06 04/04/18 11:06 04/04/18 11:06 04/04/18 11:06 General appearance: Present: A&O X 3, no acute distress, answers questions appropriately - Respiratory Respiratory exam: Present: CTAB. Absent: accessory muscle use, rales, rhonchi, wheezes - Cardiovascular Cardiovascular exam: Present: RRR, +S1, +S2. Absent: diastolic murmur, gallop, rubs, systolic murmur - GI/Abdominal GI/Abdominal exam: Present: normal bowel sounds, soft, no peritoneal signs. Absent: distended, tenderness - Extremities Exam Extremities exam: Present: normal capillary refill, warm, radial pulses palpable and symmetrical. Absent: calf tenderness, cyanotic, pedal edema, tenderness Internal Medicine: Result - Labs CBC & Chem 7: 04/03/18 02:53 04/04/18 04:49 Labs: BMP 04/04/18 04:49 Sodium 136 Potassium 4.6 Chloride 107 Carbon Dioxide 22 L BUN 17 Creatinine 0.73 Glucose 179 H Calcium 9.2 Cardiac Enzymes 04/03/18 Range/Units 14:52 Troponin I < 0.03 (< 0.04) ng/mL - ABG Interpretation ABG results: PT/INR, D-dimer D-Dimer 382 ng/mLFEU (0-500) 04/03/18 02:53 Consult Discharge Plan - Plan Referrals: Bartolo Miller DO [Primary Care Provider] - <Analilia Jurado - Last Filed: 04/04/18 14:56> Date of Encounter: 04/04/18 - Constitutional Vitals: Temp Pulse Resp BP Pulse Ox 98.6 F 78 16 106/67 94 04/04/18 11:06 04/04/18 11:06 04/04/18 11:06 04/04/18 11:06 04/04/18 11:06 Internal Medicine: Result - Labs CBC & Chem 7: 04/03/18 02:53 04/04/18 04:49 Labs: BMP 04/04/18 04:49 Sodium 136 Potassium 4.6 Chloride 107 Carbon Dioxide 22 L BUN 17 Creatinine 0.73 Glucose 179 H Calcium 9.2 Cardiac Enzymes 04/03/18 Range/Units 14:52 Troponin I < 0.03 (< 0.04) ng/mL - ABG Interpretation ABG results: PT/INR, D-dimer D-Dimer 382 ng/mLFEU (0-500) 04/03/18 02:53 - Attending Attestation I examined this patient and my medical decision-making was reviewed with the Resident Physician Dr. Birmingham. I agree with the documented findings, disposition and treatment plan as described except to the extent set forth below. Ms. Vaughan is a 47 year old female past mental history acid reflux, tobacco abuse, asthma, multiple environmental allergies admitted to [facility] with progressively worsening shortness of breath. Pt does have acute hypoxic resp failure triggered by pneumonitis and Asthma exacerbation. Pt was admitted in the hospital and placed her on high dose IV steroids and empirical abx. Pt stated she is feeling better today. Still has moderate shortness of breath and dyspnea on exertion. currently on 2.5 L oxygen through nasal cannula. Gen: A, A< O x3 Chest: Moderate wheezing, no crackles, no rales, no ronchi a/p 1. Acute hypoxic respiratory failure 2. Acute asthma exacerbation 3. Acute pneumonitis mostly chemical related acid reflux improving try to wean her off the oxygen started tapering steroids continue bronchodilator and inhaler steroids started her on PPI b.i.d.
[2018-04-04] MEDS: traMADol 50 MG TABLET PO PRN (17:01)
[2018-04-04] MEDS: *HR* Heparin 5,000 UNIT/ML VIAL SQ SCH (17:47)
[2018-04-05] MEDS: *HR* Heparin 5,000 UNIT/ML VIAL SQ SCH (05:07)
[2018-04-05 05:30] LABS: Hematocrit 45.3 % (35.3-44.9); Hemoglobin 15.6 g/dL (11.5-15.4); Mean Corpuscular HGB Conc 34.4 g/dL (31.6-35.5); Mean Corpuscular Hemoglobin 33.1 pg (28.0-33.3); Mean Platelet Volume 10.2 fL (9.4-12.4); Platelet Count 282 K/mcL (140-400); Red Blood Count 4.72 M/mcL (3.82-4.97); Red Cell Distribution Width 12.5 % (11.5-14.5)
[2018-04-05 05:50] LABS: BUN/Creatinine Ratio 34 (6-26); Blood Urea Nitrogen 22 mg/dL (6-20); Carbon Dioxide 23 mEq/L (23-29); Chloride 108 mEq/L (98-107); Glucose 154 mg/dL (70-105); Osmolality,Calculated 292 (280-300); Potassium 4.1 mEq/L (3.5-5.1); Sodium 138 mEq/L (136-145); eGFR For Non-African Americans > 60 (> 60)
[2018-04-05] MEDS: Insulin LISPRO 300 UNITS/3 ML VIAL SQ SCH (08:50)
[2018-04-05] MEDS: methylPREDNISolone 125 MG/2 ML VIAL IVP SCH (10:12)
[2018-04-05] MEDS: Loratadine 10 MG TABLET PO SCH (10:12)
[2018-04-05] MEDS: Azithromycin 250 MG in D5% in Water 250 ML IVPB SCH (10:13)
[2018-04-05] MEDS ORDERED: GI Cocktail 40 ML EACH PO ONE (11:27)
[2018-04-05 11:40] VITALS: BP 127/76
[2018-04-05 11:59] LABS: Adenovirus Not Detected (Not Detect); Bordetella Pertussis Not Detected (Not Detect); Chlamydophila pneumoniae Not Detected (Not Detect); Coronavirus 229E Not Detected (Not Detect); Coronavirus HKU1 Not Detected (Not Detect); Coronavirus NL63 Not Detected (Not Detect); Coronavirus OC43 Not Detected (Not Detect); Human Metapneumovirus Not Detected (Not Detect); Human Rhinovirus/Enterovirus Not Detected (Not Detect); Influenza A Subtype 2009 H1 Not Detected (Not Detect); Influenza A Untypeable Not Detected (Not Detect); Influenza B Not Detected (Not Detect); Mycoplasma pneumoniae Not Detected (Not Detect); Parainfluenza Virus 1 Not Detected (Not Detect); Parainfluenza Virus 2 Not Detected (Not Detect); Parainfluenza Virus 3 Not Detected (Not Detect); Parainfluenza Virus 4 Not Detected (Not Detect); Respiratory Syncytial Virus Not Detected (Not Detect)
--- NOTE | 2018-04-05 15:13 | Discharge Summary ---
- NOTES TO OUTPATIENT PROVIDER Notes to Outpatient Provider: Presented with shortness of breath-chemical pneumonitis secondary to GERD-steroids and PPI twice a day as well as antibiotic azithromycin-qualified for home oxygen-recommend EGD as outpatient Orders not resulted at time of discharge: Pending orders 04/03/18 07:51 Culture,Blood [BC] Stat 04/04/18 16:57 Sputum Culture [Culture,Sputum with Gram Stain] [] Routine Date of Encounter: 04/05/18 Time of Encounter: 15:06 - Discharge Diagnosis (1) Tobacco abuse Priority: Secondary Status: Chronic (2) Asthma Priority: Primary Status: Chronic Qualifiers: Asthma severity: unspecified severity Qualified Code(s): J45.909 - Unspecified asthma, uncomplicated (3) Pneumonitis Priority: Primary Status: Acute (4) Acute respiratory failure Priority: Secondary Status: Acute Qualifiers: Respiratory failure complication: hypoxia Qualified Code(s): J96.01 - Acute respiratory failure with hypoxia (5) Acid reflux Priority: Secondary Status: Acute Qualifiers: Qualified Code(s): K21.9 - Gastro-esophageal reflux disease without esophagitis (6) Hyperglycemia Priority: Secondary Status: Acute Hospital course: Ms. Vaughan is a 47 year old female past medical history of acid reflux tobacco abuse asthma multiple environmental allergies admitted to [facility] with shortness of breath which initiated approximately a week prior to presentation. She required oxygen supplementation and was given steroids and antibiotic treatment chest x-ray demonstrated bibasilar scarring that is consistent on current x-ray mild inflammation which may be secondary to acid reflux suspected pneumonitis-vision did admit to frequent heartburn. Respiratory status did improve 6 minute walk was completed and patient did qualify for home oxygen. Advised patient to follow-up with primary care provider for outpatient EGD. Patient discharged home with antibiotic for 2 days as well as steroid burst. She was also given prescription for PPI She is hemodynamically stable at this time and is ready for discharge. - Time Spent with Patient Total time spent providing and/or coordinating discharge services: - Discharge Medications Prescriptions: Azithromycin [Zithromax] 250 mg PO DAILY #2 tablet Omeprazole [PriLOSEC] 40 mg PO BIDAC #60 capsule. predniSONE [PredniSONE] 40 mg PO DAILY #3 tablet Home Medications: Albuterol Sulfate [Ventolin Hfa] 1 - 2 puff IH Q4H PRN 04/03/18 [History] Fluticasone/Vilanterol [Breo Ellipta 100-25 Mcg INH] 1 puff IH DAILY 04/03/18 [History] Loratadine [Claritin] 10 mg PO DAILY 04/03/18 [History] Montelukast [Singulair] 10 mg PO QPM 04/03/18 [History] Azithromycin [Zithromax] 250 mg PO DAILY #2 tablet 04/05/18 [Rx] Omeprazole [PriLOSEC] 40 mg PO BIDAC #60 capsule. 04/05/18 [Rx] predniSONE [PredniSONE] 40 mg PO DAILY #3 tablet 04/05/18 [Rx] Allergies/Adverse Reactions: Allergy/AdvReac Type Severity Reaction Status Date / Time codeine Allergy "FULL BODY Verified 04/03/18 13:50 RASH" Penicillins Allergy Anaphylaxis, Verified 04/03/18 13:50 HIVES sulfamethoxazole Allergy Hives Verified 04/03/18 13:50 [From Bactrim] trimethoprim [From Bactrim] Allergy Hives Verified 04/03/18 13:50 Amoxicillin AdvReac "FULL BODY Verified 04/03/18 13:50 RASH" Date of admission: 04/03/18 06:36 Primary care physician: Bartolo Miller Consults: 04/03/18 09:55 Consult to Nurse Navigator [CONS] Routine Comment: COPD Discharging clinician: Lori Hunter Anticipated date of discharge: 04/05/18 - Constitutional Vitals: Temp Pulse Resp BP Pulse Ox 97.3 F L 75 16 127/76 96 04/05/18 11:39 04/05/18 11:39 04/05/18 11:39 04/05/18 11:39 04/05/18 12:56 General appearance: Present: A&O X 3, no acute distress, answers questions appropriately Exam: . - Head Head exam: Present: atraumatic, normocephalic - Eye Eye exam: Present: PERRL, conjuntiva pink, sclera anicteric Pupils: Present: PERRL - Neck Neck exam general surgery: Present: supple, trachea midline. Absent: lymphadenopathy - Respiratory Respiratory exam: Present: CTAB. Absent: accessory muscle use, rales, rhonchi, wheezes - Cardiovascular Cardiovascular exam: Present: RRR, +S1, +S2. Absent: diastolic murmur, gallop, rubs, systolic murmur - GI/Abdominal GI/Abdominal exam: Present: normal bowel sounds, soft, no peritoneal signs. Absent: distended, tenderness - Extremities Exam Extremities exam: Present: warm, radial pulses palpable and symmetrical. Absent: calf tenderness, cyanotic, pedal edema - Neurological Exam Neurological exam: Present: CN II-XII intact, oriented X3, no focal deficits. Absent: pronater drift, facial droop, speech deficit - Skin Skin exam: Present: dry, intact - Patient Status Disposition: Home, Self-Care Condition: Good Functional capacity at discharge: independent ambulation Overall status at discharge: patient is back to baseline - Discharge Instructions Instructions: Acute Respiratory Distress Syndrome (DC) Follow Up With: Bartolo Miller DO [Primary Care Provider] - (Unable to schedule appointment due to office being closed on the weekend. Please call Saturday to schedule hospital follow up appointment 7-10 days from date of discharge. ) - Diet and Activity Activity: increase activity as tolerated, wear oxygen at all times Diet: advance to your usual diet
== END 2018-04-05 16:45 | disposition home or self-care (01) ==
LOC: EMEROOARM 02:49 → 3BNU 02:49 → SUATTDRO 06:36 → 3BNU 06:55
PROVIDERS: ADMIT Internal Medicine; ATTEND Family Medicine

== ENCOUNTER 2020-08-28 01:36 | Observation (INO) ==
[2020-08-28] MEDS ORDERED: Acetaminophen IV 500 MG/50 ML BAG IVPB PRN ×2 (04:38→17:42)
[2020-08-28] MEDS ORDERED: 0.9 % Sodium Chloride 1,000 ML IVC SCH (04:45)
[2020-08-28] MEDS ORDERED: cefOXitin 1,000 MG, 0.9 % Sodium Chloride 1,000 ML IR ONE ×2 (08:00→17:42)
[2020-08-28] MEDS ORDERED: Lidocaine -MPF 2% 2 ML VIAL ONE (08:30)
[2020-08-28] MEDS ORDERED: Ondansetron 4 MG/2 ML VIAL ONE (08:30)
[2020-08-28] MEDS ORDERED: *HR* Midazolam HCl 2 MG/2 ML VIAL ONE (08:30)
[2020-08-28] MEDS ORDERED: *HR* Propofol 200 MG/20 ML VIAL IVP ONE (08:30)
[2020-08-28] MEDS ORDERED: *HR* FentaNYL (PF) 100 MCG/2 ML VIAL ONE (08:30)
[2020-08-28] MEDS ORDERED: Lidocaine HCL 4 ML Topical Solution (Laryng-O-Jet Kit Sterile Pak) TP ONE (08:30)
[2020-08-28] MEDS ORDERED: Clindamycin 600 MG/50 ML 600 MG/50 ML IV.SOLN IVPB STA (08:53)
[2020-08-28] MEDS ORDERED: Clindamycin 600 MG/50 ML 600 MG/50 ML IV.SOLN IVPB ONE (08:56)
[2020-08-28] MEDS ORDERED: Ondansetron 4 MG/2 ML VIAL IVP PRN (09:06)
[2020-08-28] MEDS ORDERED: Promethazine 6.25 MG in Water for inj. (sterile) 20 ML IVPB PRN (09:06)
[2020-08-28] MEDS ORDERED: *HR* HYDROmorphone PF 0.5 MG/0.5 ML SYRINGE IVP PRN (09:06)
[2020-08-28] MEDS ORDERED: *HR* HYDROMORPHONE 2 MG/ML VIAL ONE (09:59)
[2020-08-28] MEDS ORDERED: Sugammadex Sodium 200 MG/2 ML VIAL IV ONE (10:03)
[2020-08-28] MEDS ORDERED: Ipratropium/Albuterol Neb 3 ML IH PRN ×2 (11:31→17:42)
[2020-08-28] MEDS ORDERED: *HR* Heparin 5,000 UNIT/ML VIAL SQ SCH (14:00)
[2020-08-28] MEDS ORDERED: Ibuprofen 800 MG TABLET PO PRN (17:42)
[2020-08-29] MEDS: *HR* Heparin 5,000 UNIT/ML VIAL SQ SCH ×2 (00:16→05:44)
[2020-08-29] MEDS: 0.9 % Sodium Chloride 1,000 ML IVC SCH ×2 (00:16→07:27)
[2020-08-29] MEDS: MetroNIDAZOLE 500 MG/100 ML 500 MG/100 ML BAG IVPB SCH ×2 (00:23→08:53)
[2020-08-29] MEDS ORDERED: Loratadine 10 MG TABLET PO SCH ×2 (09:00)
[2020-08-29 11:27] VITALS: BP 115/74
== END 2020-08-29 11:53 | disposition home or self-care (01) ==
LOC: 3ANU
PROVIDERS: ADMIT Surgery; ATTEND Surgery